=== PATIENT | female | born 1990 | race Caucasian/White ===

== ENCOUNTER 2023-09-16 07:54 | Day surgery (SDC) | payer OTHER ==
[2023-09-16 08:02] LABS: Absolute Lymphocytes (CBC) 2.4 K/uL (0.7-4.9); Hematocrit 38.6 % (36.0-45.0); MCV 82.8 fL (80-100); MPV 8.4 fL (7.6-11.3); Platelets 347 thou/uL (152-406); RBC Red Blood Cell Count 4.66 M/uL (3.86-4.86)
[2023-09-16] MEDS ORDERED: ROCURONIUM 50 MG/5 ML VIAL IV ONE (08:06)
[2023-09-16] MEDS ORDERED: LIDOCAINE 2% MPF 5 ML VIAL ONE (08:06)
[2023-09-16] MEDS ORDERED: ONDANSETRON 4 MG/2 ML VIAL ONE (08:06)
[2023-09-16] MEDS ORDERED: NEOSTIGMINE 1 MG/ML -10 ML VIAL ONE (08:06)
[2023-09-16] MEDS ORDERED: propofoL 200 MG/20 ML VIAL IV ONE (08:06)
[2023-09-16] MEDS ORDERED: GLYCOPYRROLATE 0.2 MG/ML SYR ONE (08:06)
[2023-09-16] MEDS ORDERED: MIDAZOLAM HCL 2 MG/2 ML INJ ONE (08:07)
[2023-09-16] MEDS ORDERED: FENTANYL CITR 100 MCG/2 ML ONE ×2 (08:07→09:04)
[2023-09-16] MEDS ORDERED: CEFAZOLIN SODIUM 1 GM/VIAL ONE (08:09)
[2023-09-16] MEDS ORDERED: Ringers Lactate 1,000 ML IV ONE (08:09)
[2023-09-16] MEDS ORDERED: CEFOXITIN SODIUM 1 GM/VIAL ONE (08:11)
[2023-09-16 08:20] LABS: Albumin 3.5 g/dL (3.4-5.0); Bilirubin Direct 0.1 mg/dL (0-0.2); Bilirubin Indirect, Calculated 0.3 mg/dL (0.2-0.8); Bilirubin Total 0.4 mg/dL (0.2-1.0); Potassium 3.6 mEq/L (3.5-5.1); Protein, Total 7.5 g/dL (6.4-8.2)
[2023-09-16 08:48] VITALS: O2SAT 100
[2023-09-16] MEDS ORDERED: ALBUTEROL INHALER 60 PUFF/8 GM IH ONE (09:04)
[2023-09-16] MEDS ORDERED: Mastisol Adhesive Liq ONE (09:31)
--- NOTE | 2023-09-16 09:33 | P.BOP ---
Preoperative diagnosis: acute cholecystitis, symptomatic cholelithiasis Postoperative diagnosis: same Primary procedure: Laparoscopic cholecystectomy Estimated blood loss: <10cc Specimen: gb Findings: as above Anesthesia: General Complications: None Transferred to: Recovery Room Condition: Good
[2023-09-16] MEDS: HYDROMORPHONE HCL 1 MG/ML INJ ONE ×2 (09:53→09:58)
[2023-09-16] MEDS ORDERED: CODEINE 30MG/APAP 300MG TAB ONE (10:41)
[2023-09-16 10:51] VITALS: BP 148/55; TEMP 97.8
== END 2023-09-16 11:20 | disposition home or self-care (01) ==
LOC: OR 07:54
PROVIDERS: ATTEND Surgery
PROC: 0FT44ZZ Resection of Gallbladder, Percutaneous Endoscopic Approach (ICD-10-PCS; principal; 2023-09-16 10:45)
DX: K80.10 Calculus of gallbladder with chronic cholecystitis without obstruction (principal); E66.9 Obesity, unspecified; Z68.43 Body mass index [BMI] 50.0-59.9, adult
CPT/HCPCS: 85025; 80048; 36415; 84703; 80076; 88304; 83690; 47562; J2704; J2710; J2001; J2250; J3010 ×2; J1170; J0694; J2405; J7120; J0690